=== PATIENT | male | born 1970 | race African-American/Black ===

== ENCOUNTER 2017-04-05 17:00 | Emergency (ER) | payer MEDICAID ==
[~2017-04-05 17:00] MED LIST: DIGO0.1262 PO; IBUP800T24 PO; METO25TA5 PO
== END 2017-04-05 18:09 | disposition left against medical advice (07) ==
LOC: ER 17:03
DX: R07.89 Other chest pain (principal); Z53.21 Procedure and treatment not carried out due to patient leaving prior to being seen by health care provider

== ENCOUNTER 2021-08-06 04:17 | Emergency (ER) | payer MEDICAID ==
[~2021-08-06] VITALS: Ht 152.4 cm; Wt 124.3 kg
[~2021-08-06 04:17] MED LIST changes: -IBUP800T24 PO; +IBUP800T27 PO
[2021-08-06 07:02] LABS: Urine Bacteria NONE SEEN /hpf (None Seen); Urine Blood Negative /uL (Negative); Urine Mucus FEW (None Seen); Urine Specific Gravity 1.025 (1.001-1.035); Urine WBC 6 /hpf (0 - 3)
[2021-08-06 07:07] LABS: Basophils # (auto) 0 10 ^3/uL (0-0.2); Basophils % (auto) 0.9 % (0.0-2.0); Eosinophils # (auto) 0 10 ^3/uL (0-0.8); Hematocrit 44.3 % (41.0-53.0); Hemoglobin 14.5 g/dL (13.5-17.5); Lymphocytes # (auto) 1.1 10 ^3/uL (0.4-5.4); Lymphocytes % (auto) 23.8 % (10.0-50.0); Mean Corpuscular Hemoglobin 27.6 pg (28.0-32.0); Mean Corpuscular Hgb Conc. 32.7 g/dL (32.0-36.0); Mean Corpuscular Volume 84.5 fL (80.0-100.0); Monocytes # (auto) 0.4 10 ^3/uL (0-1.3); Monocytes % (auto) 8.3 % (0.0-12.0); Neutrophils # (auto) 3.1 10 ^3/uL (1.6-8.6); Nucleated Red Blood Cells % 0.1 %; Red Blood Cells 5.25 10^6/uL (4.5-5.90); Red Cell Distribution Width 15.3 % (11.8-14.3); White Blood Cell 4.7 10^3/uL (4.4-10.8)
[2021-08-06 07:15] LABS: Albumin 3.6 g/dL (3.4-5.0); BUN/Creatinine Ratio 13.5; Calcium 8.8 mg/dL (8.5-10.1); Potassium 3.9 mmol/L (3.5-5.1)
[2021-08-06 07:18] LABS: Bilirubin, Total 0.2 mg/dL (0.2-1.0); Total Protein 8.1 g/dL (6.4-8.2)
[2021-08-06] MEDS ORDERED: ONDANSETRON HCL 4 MG/2 ML VIAL IV ONE (08:30)
[2021-08-06] MEDS ORDERED: MORPHINE SULFATE 4 MG/ML SYR/VIAL IV ONE (08:30)
[2021-08-06] MEDS ORDERED: KETOROLAC TROMETH 30 MG/ML 1ML VIAL IV ONE (09:00)
[2021-08-06 11:18] VITALS: BP 105/57
== END 2021-08-06 11:26 | disposition home or self-care (01) ==
LOC: ER 04:17
DX: N39.0 Urinary tract infection, site not specified (principal); I10 Essential (primary) hypertension; I48.91 Unspecified atrial fibrillation; F17.210 Nicotine dependence, cigarettes, uncomplicated; Z86.73 Personal history of transient ischemic attack (TIA), and cerebral infarction without residual deficits; Z79.1 Long term (current) use of non-steroidal anti-inflammatories (NSAID); Z79.899 Other long term (current) drug therapy
CPT/HCPCS: 36415; 74176; 80053; 81001; 83690; 85025; 96374; 99285; J1885; J2270; J2405

== ENCOUNTER 2024-10-24 05:42 | Inpatient (IN) | payer MEDICAID, SELFPAY ==
[~2024-10-24] VITALS: Ht 175.3 cm; Wt 131.6 kg
[~2024-10-24 05:42] MED LIST changes: +IBUP-1456 PO; -IBUP800T27 PO
--- NOTE | 2024-10-24 06:03 | ECG ---
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
--- NOTE | 2024-10-24 06:56 | ECG ---
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
[2024-10-24] MEDS: AMIODARONE BOLUS KIT 100 ML IV ONE (07:13)
[2024-10-24 07:27] LABS: Basophils # (auto) 0.1 10 ^3/uL (0-0.2); Basophils % (auto) 1.1 % (0.0-2.0); Eosinophils # (auto) 0.2 10 ^3/uL (0-0.8); Eosinophils % (auto) 3.6 % (0.0-7.0); Hematocrit 43.8 % (41.0-53.0); Hemoglobin 14.7 g/dL (13.5-17.5); Lymphocytes # (auto) 3.3 10 ^3/uL (0.4-5.4); Lymphocytes % (auto) 55.3 % (10.0-50.0); Mean Corpuscular Hemoglobin 28.3 pg (28.0-32.0); Mean Corpuscular Hgb Conc. 33.5 g/dL (32.0-36.0); Mean Corpuscular Volume 84.5 fL (80.0-100.0); Monocytes # (auto) 0.4 10 ^3/uL (0-1.3); Monocytes % (auto) 7.3 % (0.0-12.0); Neutrophils # (auto) 1.9 10 ^3/uL (1.6-8.6); Neutrophils % (auto) 32.7 % (37.0-80.0); Nucleated Red Blood Cells % 0.3 %; Platelet Count (auto) 256 10^3/uL (140-450); Red Blood Cells 5.19 10^6/uL (4.5-5.90); Red Cell Distribution Width 14.8 % (11.8-14.3)
--- NOTE | 2024-10-24 07:27 | ED.PDOC ---
HPI Comments 53 y/o M, with PMHX of MattYvetteCarrie presents to the ED for CC of palpitations. Patient states, that he has been experiencing palpitations with associated symptoms of chest pain and shortness of breath x . Patient endorses on, having a previous prescription for atrial fibrillation medication which he has not gone to have refilled; last time taking prescription was x4 years ago. Patient smokes tobacco and marijuana, drinks occasional ETOH. Patient denies headache, fever, dizziness , or lightheadedness. No new symptoms or modifying factors at this time. Chief Complaint: Palpitations Time Seen by MD: 07:30 Primary Care Provider: NONE Reviewed Notes: Nurses Notes, Medications, Allergies Allergies: Coded Allergies: NO KNOWN ALLERGIES (Unverified , 06/25/15) Home Meds Reported Medications Digoxin (Digoxin) 0.125 Mg Tab, 1 TAB PO DAILY, #30 TAB 5 Refills 08/24/15 Metoprolol Tartrate (Metoprolol Tartrate) 25 Mg Tab, 25 MG PO DAILY 06/25/15 Ibuprofen (Ibuprofen) 800 Mg Tab, 800 MG PO 2XW, #90 06/25/15 Information Source: Patient Mode of Arrival: Ambulatory Severity: Moderate Duration: Since onset Prehospital treatment: None Location: Substernal Radiation: No Radiation Cardiac Risk Factors: Smoker History of: None Modifying Factors: Nothing Associated Signs and Symptoms: SOB Past Medical History PAST MEDICAL HISTORY: AFIB, TIA Family History Family History: No family hx of DM, No family hx of HTN Social History Smoker: Cigarettes, Less Than 1 Pack/Day Alcohol: Rarely Drugs: Marijuana Lives In: Home Constitutional: denies: chills, diaphoresis, fatigue, fever, malaise, sweats, weakness, others EENTM: denies: blurred vision, double vision, ear bleeding, ear discharge, ear drainage, ear pain, ear ringing, eye pain, eye redness, hearing loss, mouth pain, mouth swelling, nasal discharge, nose bleeding, nose congestion, nose pain, photophobia, tearing, throat pain, throat swelling, voice changes, others Respiratory: reports: shortness of breath; denies: cough, hemoptysis, orthopnea, SOB at rest, SOB with excertion, stridor, wheezing, others Cardiovascular: reports: chest pain, irregular heart beat, palpitations; denies: dizzy spells, diaphoresis, Dyspnea on exertion, edema, left arm pain, lightheadedness, PND, syncope, others Gastrointestinal: denies: abdomen distended, abdominal pain, blood streaked bowels, constipated, diarrhea, dysphagia, difficulty swallowing, hematemesis, melena, nausea, poor appetite, poor fluid intake, rectal bleeding, rectal pain, vomiting, others Genitourinary: denies: burning, dysuria, flank pain, frequency, hematuria, incontinence, penile discharge, penile sore, pain, testicle pain, testicle swelling, urgency, others Neurological: denies: dizziness, fainting, headache, left sided numbness, left sided weakness, numbness, paresthesia, pre-existing deficit, right sided numbness, right sided weakness, seizure, speech problems, tingling, tremors, weakness, others Musculoskeletal: denies: back pain, gout, joint pain, joint swelling, muscle pain, muscle stiffness, neck pain, others Integumetry: denies: bruises, change in color, change in hair/nails, dryness, laceration, lesions, lumps, rash, wounds, others Allergic/Immunocompromised: denies: Difficulty Healing, Frequent Infections, Hives, Itching, others Hematologic/Lymphatic: denies: anemia, blood clots, easy bleeding, easy bruising, swollen glands, others Endocrine: denies: excessive hunger, excessive sweating, excessive thirst, excessive urination, flushing, intolerance to cold, intolerance to heat, unexplained weight gain, unexplained weight loss, others Psychiatric: denies: anxiety, bipolar disorder, depression, hopeless, panic disorder, schizophrenia, sleepless, suicidal, others All Other Systems: Reviewed and Negative Physical Exam General Appearance: Moderate Distress HEENT: Normal ENT Inspection, Pharynx Normal, TMs Normal Neck: Full Range of Motion, Non-Tender, Normal, Normal Inspection Respiratory: Chest Non-Tender, Lungs Clear, No Accessory Muscle Use, No Respiratory Distress, Normal Breath Sounds Cardiovascular: Irregular, Tachycardia Breast Exam: Deferred Gastrointestinal: No Organomegaly, Non Tender, No Pulsatile Mass, Normal Bowel Sounds, Soft Genitalia: Deferred Pelvic: Deferred Rectal: Deferred Extremities: No calf tenderness, Normal capillary refill, Normal inspection, Normal range of motion, Non-tender, No pedal edema Musculoskeletal : Apperance: Normal Neurologic: Alert, 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 Was a procedure done?: No CP Differential Dx Differential Diagnosis: A-fib X-Ray, Labs, Meds, VS Vital Signs Date Time Temp Pulse Resp B/P (MAP) Pulse Ox O2 Delivery O2 Flow Rate FiO2 10/24/24 08:00 136 10/24/24 07:30 109 17 94 Room Air* 0 21 10/24/24 07:30 98.1 109 17 112/74 (87) 94 98.1 10/24/24 07:27 155 10/24/24 07:00 171 20 103/68 (80) 92 10/24/24 06:49 155 10/24/24 06:43 139 17 99/63 (75) 96 10/24/24 06:41 149 10/24/24 06:15 166 19 107/61 (76) 95 10/24/24 05:51 136 10/24/24 05:51 136 10/24/24 05:45 98.6 134 18 131/90 (104) 97 Lab Test 10/24/24 08:21 10/24/24 07:07 10/24/24 06:03 Range/Units Urine Color Light-yellow Yellow Urine Clarity Clear Clear Urine pH 5.0 5.0-9.0 Urine Specific [place] 1.013 1.001-1.035 Urine Protein Negative Negative Urine Ketones Negative Negative Urine Blood Negative Negative /uL Urine Nitrite Negative Negative Urine Bilirubin Negative Negative Urine Urobilinogen Normal Negative mg/dL Urine Leukocyte Esterase Negative Negative /uL Urine RBC None seen 0 - 3 /hpf Urine Microscopic WBC < 1 0-3 /HPF Urine Squamous Epithelial Cells Few <5 /hpf Urine Bacteria None seen None Seen /hpf Urine Glucose Normal Normal mg/dL Troponin I High Sensitivity 74 *H 74 *H </=54 ng/L White Blood Count 6.0 4.4-10.8 10^3/uL Red Blood Count 5.19 4.5-5.90 10^6/uL Hemoglobin 14.7 13.5-17.5 g/dL Hematocrit 43.8 41.0-53.0 % Mean Corpuscular Volume 84.5 80.0-100.0 fL Mean Corpuscular Hemoglobin 28.3 28.0-32.0 pg Mean Corpuscular Hemoglobin Concent 33.5 32.0-36.0 g/dL Red Cell Distribution Width 14.8 H 11.8-14.3 % Platelet Count 256 140-450 10^3/uL Mean Platelet Volume 8.4 6.9-10.8 fL Neutrophils (%) (Auto) 32.7 L 37.0-80.0 % Lymphocytes (%) (Auto) 55.3 H 10.0-50.0 % Monocytes (%) (Auto) 7.3 0.0-12.0 % Eosinophils (%) (Auto) 3.6 0.0-7.0 % Basophils (%) (Auto) 1.1 0.0-2.0 % Neutrophils # (Auto) 1.9 1.6-8.6 10 ^3/uL Lymphocytes # (Auto) 3.3 0.4-5.4 10 ^3/uL Monocytes # (Auto) 0.4 0-1.3 10 ^3/uL Eosinophils # (Auto) 0.2 0-0.8 10 ^3/uL Basophils # (Auto) 0.1 0-0.2 10 ^3/uL Nucleated Red Blood Cells 0.3 % Sodium Level 141 136-145 mmol/L Potassium Level 4.4 3.5-5.1 mmol/L Chloride Level 111 H 98-107 mmol/L Carbon Dioxide Level 20 20-31 mmol/L Anion Gap 10 5-15 Blood Urea Nitrogen 12 9-23 mg/dL Creatinine 1.12 0.700-1.30 mg/dL Glomerular Filtration Rate Calc 80 >90 mL/min BUN/Creatinine Ratio 10.7 10.0-20.0 Serum Glucose 130 H 74-106 mg/dL Calcium Level 9.9 8.7-10.4 mg/dL Total Bilirubin 0.2 0.2-1.0 mg/dL Aspartate Amino Transferase (AST) 24 13-40 U/L Alanine Aminotransferase (ALT) 34 7-40 U/L Alkaline Phosphatase 106 46-116 U/L B-Type Natriuretic Peptide 9.28 0-100 pg/mL Total Protein 7.5 5.7-8.2 g/dL Albumin 4.5 3.2-4.8 g/dL Current Medications Medications (Trade) Dose Ordered Sig/Viry Route Start Time Stop Time Status Last Admin Amiodarone HCl 100 ml @ 618 mls/hr ONCE ONCE IV 10/24/24 07:00 10/24/24 07:09 DC 10/24/24 07:13 Patient alert. Complaining of palpitations. Vitals stable. Answering questions. EKG reviewed shows atrial fibrillation. Started amiodarone. Has not taken his medication in many years. History of atrial fibrillation. Patient is comfortable. Cardiac marker elevated. Demand ischemia. Was given Lovenox. Explained to the patient. Continue cardiac monitoring. Time of 1ST Reevaluation: 08:00 Reevaluation 1ST: Unchanged Patient Education/Counseling: Diagnosis, Treatment Family Education/Counseling: No Family Present Departure 1 Departure Time of Disposition: 09:10 Impression: Primary Impression: Atrial fibrillation Qualified Codes: I48.0 - Paroxysmal atrial fibrillation Additional Impressions: Demand ischemia Diastolic heart failure Qualified Codes: I50.33 - Acute on chronic diastolic (congestive) heart failure Disposition: ADMITTED INPATIENT Admit to: Med Surg Condition: Guarded Critical Care Note Critical Care Time?: Yes (90 min-critical care time only) Stability Stability form required: No Heart Score Heart Score: Heart Score Response (Comments) Value History Moderate Suspicious [address]-Deviation 2 Age <45 0 Risk Factors >3 or Hx ASHD 2 Troponin 1-2 x's Normal limit 1 Total 6 I personally scribed for RUTHANN PETERSON MD ([email or web address]) on 10/24/24 at 07:27. Electronically submitted by Ester Bagley [email or web address]). RUTHANN PETERSON MD Oct 24, 2024 07:27
[2024-10-24 07:30] VITALS: PULSE 109; RESP 17; O2SAT 94
[2024-10-24 07:37] LABS: Alanine Aminotransferase 34 U/L (7-40); Albumin 4.5 g/dL (3.2-4.8); Alkaline Phosphatase 106 U/L (46-116); Anion Gap 10 (5-15); Aspartate Aminotransferase 24 U/L (13-40); BUN/Creatinine Ratio 10.7 (10.0-20.0); Blood Urea Nitrogen 12 mg/dL (9-23); Calcium 9.9 mg/dL (8.7-10.4); Potassium 4.4 mmol/L (3.5-5.1); Sodium 141 mmol/L (136-145); Total Protein 7.5 g/dL (5.7-8.2)
[2024-10-24 07:41] LABS: Bilirubin, Total 0.2 mg/dL (0.2-1.0); Carbon Dioxide 20 mmol/L (20-31); Chloride 111 mmol/L (98-107); Glucose 130 mg/dL (74-106)
[2024-10-24] MEDS: AMIODARONE 360mg/200mL PREMIX 200 ML IV ONE ×2 (07:43)
[2024-10-24 08:32] LABS: Urine Bacteria None Seen /hpf (None Seen)
[2024-10-24 08:51] LABS: Urine Blood Negative /uL (Negative); Urine Clarity Clear (Clear); Urine Protein, UAD Negative (Negative); Urine Specific Gravity 1.013 (1.001-1.035); Urine Squamous Epithelial Cell FEW /hpf (<5); Urine Urobilinogen Normal (Negative); Urine WBC < 1 /HPF (0-3)
[2024-10-24 08:58] LABS: Urine Color Light-Yellow (Yellow)
--- NOTE | 2024-10-24 09:27 | DVH ---
EXAM: XY CHEST PORTABLE HISTORY: sob COMPARISON: None TECHNIQUE: Portable upright AP view of the chest was performed. FINDINGS: There is mild right medial basilar infiltrate. No pneumothorax or pulmonary edema. The heart is not enlarged. IMPRESSION: Mild right medial basilar infiltrate may be due to pneumonia, atelectasis, or scarring. Comparison w ith old chest x-ray would be necessary to make this distinction. The lungs are otherwise clear.
[2024-10-24] MEDS: ENOXAPARIN SOD 150 MG/1 ML SYRINGE SC ONE (10:00)
[2024-10-24] MEDS: AMIODARONE 360mg/200mL PREMIX 200 ML IV SCH (13:01)
[2024-10-24] MEDS ORDERED: NITROGLYCERIN 0.4 MG SL TAB SL PRN ×2 (14:00)
[2024-10-24] MEDS ORDERED: MORPHINE SULFATE 4 MG/ML SYR/VIAL IV PRN (14:00)
[2024-10-24] MEDS ORDERED: ONDANSETRON HCL 4 MG/2 ML VIAL IV PRN (14:00)
[2024-10-24] MEDS ORDERED: MORPHINE SULFATE INJ 2 MG/ml SYRG IV PRN (14:00)
[2024-10-24] MEDS ORDERED: ACETAMINOPHEN 325 MG TAB PO PRN (14:00)
[2024-10-24 14:12] LABS: Opiate Scree,Urine Neg (NEGATIVE)
[2024-10-24 14:13] LABS: Amphetamine Screen, Urine Neg (NEGATIVE); Barbiturate Scree,Urine Neg (NEGATIVE); Benzodiazephine Screen, Urine Neg (NEGATIVE); Cannabinoid Screen, Urine Pos (NEGATIVE); Cocaine Screen, Urine Neg (NEGATIVE); Phencyclidine Screen, Urine Neg (NEGATIVE)
--- NOTE | 2024-10-24 14:13 | DVHHP2 ---
History of Present Illness Reason for Visit: Palpitations History of Present Illness Moiz Whitaker is a 53-year-old male with past medical history of AFib and TIA who presents to the ED with palpitations and SOB x2 days. Patient reports he had chest pain that started today 5/10 constant and pressure-like. Patient reports that he was at home and just relaxing with nothing triggering the symptoms. Patient also reports there are no alleviating factors. Patient states that he has medications to take for his heart but did not take them because he ran out and forgot. Patient states that he smokes cigars daily, drinks 3 beers per weekend and uses marijuana. Patient also reports that he had his gallbladder c leaned out and a ganglion cyst removal on his right hand. Patient denies any fever, chills, recent sick contacts, recent injury, abdominal pain, nausea, vomiting, diarrhea, lightheadedness, and weakness. 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 Past Surgical History: Other (Ganglion cyst removal on right hand) Family History: None Smoke: <1 pack per day ALCOHOL: occassional Drugs: Marijuana Lives: with Family Domestic Violence: Neg Review of Systems Constitutional: No: Fever, Chills, Sweats, Weakness, Malaise, Other Eyes: No: Pain, Vision change, Conjunctivae inflammation, Eyelid inflammation, Other, Redness ENT: No: Ear pain, Ear discharge, Nose pain, Nose discharge, Nose congestion, Mouth pain, Mouth swelling, Throat pain, Throat swelling, Other Respiratory: Shortness of breath; No: Cough, Dry, SOB with excertion, Wheezing, Hemoptysis, Pleuritic Pain, Sputum, Wheezing, Other Cardiovascular: Chest Pain, Palpitations; No: Orthopnea, Paroxysmal Noc. Dyspnea, Edema, Lt Headedness, Other Gastrointestinal: No: Nausea, Vomiting, Abdominal Pain, Diarrhea, Constipation, Melena, Hematochezia, Other Genitourinary: No Dysuria, No Frequency, No Incontinence, No Hematuria, No Retention, No Other Musculoskeletal: No: other, neck pain, shoulder pain, arm pain, back pain, hand pain, leg pain, foot pain Skin: No: Rash, Lesions, Jaundice, Bruising, Other Neurological: No: Weakness, Numbness, Incoordination, Change in speech, Confusion, Seizures, Other Allergies: Coded Allergies: NO KNOWN ALLERGIES (Unverified , 06/25/15) Medications Current Medications Medications Dose Ordered Sig/Viry Route Start Time Stop Time Status Last Admin Dose Admin Ceftriaxone Sodium 50 ml @ 100 mls/hr DAILY@09 IV 10/25/24 09:00 UNV Digoxin 0.125 mg DAILY PO 10/25/24 10:00 UNV Ibuprofen 800 mg 2XW PO 10/27/24 12:00 UNV Metoprolol Tartrate 25 mg DAILY PO 10/25/24 10:00 UNV Exam Vital Signs Vital Signs Date Time Temp Pulse Resp B/P (MAP) Pulse Ox O2 Delivery O2 Flow Rate FiO2 10/24/24 13:00 115 23 109/68 (82) 97 10/24/24 07:30 Room Air* 0 21 10/24/24 07:30 98.1 98.1 General Appearance: Alert, Oriented X3, Cooperative, No acute distress HEENT: Atraumatic, PERRLA, EOMI, Mucous membr. moist/pink Respiratory: Clear to auscultation, Normal air movement Cardiovascular: Normal S1, Normal S2, No murmurs Abdominal: Normal bowel sounds, Soft, No tenderness, No hepatospenomegaly, No masses Extremities: No clubbing, No cyanosis, No edema, Normal pulses, No tenderness/swelling Skin: No rashes, No breakdown, No significant lesion Neuro: Normal gait, Normal speech, Strength at 5/5 X4 ext, Normal tone, Sensation intact Psych/Mental Status: Mental status NL, Mood NL Labs/Xrays Labs Test 10/24/24 09:14 10/24/24 08:21 10/24/24 06:03 Range/Units Troponin I High Sensitivity 88 *H </=54 ng/L Urine Color Light-yellow Yellow Urine Clarity Clear Clear Urine pH 5.0 5.0-9.0 Urine Specific [place] 1.013 1.001-1.035 Urine Protein Negative Negative Urine Ketones Negative Negative Urine Blood Negative Negative /uL Urine Nitrite Negative Negative Urine Bilirubin Negative Negative Urine Urobilinogen Normal Negative mg/dL Urine Leukocyte Esterase Negative Negative /uL Urine RBC None seen 0 - 3 /hpf Urine Microscopic WBC < 1 0-3 /HPF Urine Squamous Epithelial Cells Few <5 /hpf Urine Bacteria None seen None Seen /hpf Urine Glucose Normal Normal mg/dL White Blood Count 6.0 4.4-10.8 10^3/uL Red Blood Count 5.19 4.5-5.90 10^6/uL Hemoglobin 14.7 13.5-17.5 g/dL Hematocrit 43.8 41.0-53.0 % Mean Corpuscular Volume 84.5 80.0-100.0 fL Mean Corpuscular Hemoglobin 28.3 28.0-32.0 pg Mean Corpuscular Hemoglobin Concent 33.5 32.0-36.0 g/dL Red Cell Distribution Width 14.8 H 11.8-14.3 % Platelet Count 256 140-450 10^3/uL Mean Platelet Volume 8.4 6.9-10.8 fL Neutrophils (%) (Auto) 32.7 L 37.0-80.0 % Lymphocytes (%) (Auto) 55.3 H 10.0-50.0 % Monocytes (%) (Auto) 7.3 0.0-12.0 % Eosinophils (%) (Auto) 3.6 0.0-7.0 % Basophils (%) (Auto) 1.1 0.0-2.0 % Neutrophils # (Auto) 1.9 1.6-8.6 10 ^3/uL Lymphocytes # (Auto) 3.3 0.4-5.4 10 ^3/uL Monocytes # (Auto) 0.4 0-1.3 10 ^3/uL Eosinophils # (Auto) 0.2 0-0.8 10 ^3/uL Basophils # (Auto) 0.1 0-0.2 10 ^3/uL Nucleated Red Blood Cells 0.3 % Sodium Level 141 136-145 mmol/L Potassium Level 4.4 3.5-5.1 mmol/L Chloride Level 111 H 98-107 mmol/L Carbon Dioxide Level 20 20-31 mmol/L Anion Gap 10 5-15 Blood Urea Nitrogen 12 9-23 mg/dL Creatinine 1.12 0.700-1.30 mg/dL Glomerular Filtration Rate Calc 80 >90 mL/min BUN/Creatinine Ratio 10.7 10.0-20.0 Serum Glucose 130 H 74-106 mg/dL Calcium Level 9.9 8.7-10.4 mg/dL Total Bilirubin 0.2 0.2-1.0 mg/dL Aspartate Amino Transferase (AST) 24 13-40 U/L Alanine Aminotransferase (ALT) 34 7-40 U/L Alkaline Phosphatase 106 46-116 U/L B-Type Natriuretic Peptide 9.28 0-100 pg/mL Total Protein 7.5 5.7-8.2 g/dL Albumin 4.5 3.2-4.8 g/dL EXAM: XY CHEST PORTABLE HISTORY: sob COMPARISON: None TECHNIQUE: Portable upright AP view of the chest was performed. FINDINGS: There is mild right medial basilar infiltrate. No pneumothorax or pulmonary edema. The heart is not enlarged. IMPRESSION: Mild right medial basilar infiltrate may be due to pneumonia, atelectasis, or scarring. Comparison with old chest x-ray would be necessary to make this distinction. The lungs are otherwise clear. Assessment/Plan Assessment/Plan Assessment/Plan: Palpitations Chest pain rule out cardiac ischemia AFib RVR Probable PNA Labs A.m. labs Chest x-ray UA Amnio drip Lovenox given in ED BNP UA EKG Troponin Last echo on 08/25/2015 EF 65-70% Echo ordered UDS TSH Lipid panel A1c Magnesium level ACS protocol Cardiology consult IV antibiotics-ceftriaxone History of TIA Monitor Follow up outpatient ETOH abuse Counseled patient on cessation of EtOH Polysubstance abuse Counseled patient on cessation of polysubstance use Morbid Obesity Discussed lifestyle modifications, exercise, and diet FEN/PPX diet Hep-Lock DVT prophylaxis not indicated patient ambulating PUD prophylaxis not indicated patient has no history of GERD or GI bleed Admit patient to tele Home medications reconciled Discussed plan of care with nurse and patient Plan discussed with: Patient My Orders 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 Procedure Category Date Status Time * Cardiology Consult CONS 10/24/24 Transmitted 13:14 Ceftriaxone 1gm/50ml PHA 10/25/24 Logged D5w (Rocephin) 09:00 Ceftriaxone 1gm/50ml PHA 10/24/24 Logged D5w (Rocephin) 13:30 Echo 2d Mode Cardiac US 10/24/24 Logged DOP 13:16 Drug Screen LAB 10/24/24 Logged 13:16 Thyroid Stimulating LAB 10/24/24 Logged Hormone 13:16 Lipid Panel LAB 10/24/24 Logged 13:16 Hemoglobin A1c LAB 10/24/24 Logged 13:16 Digoxin Tablet PHA 10/25/24 Logged (Lanoxin Tablet) 10:00 Ibuprofen Tablet PHA 10/27/24 Logged (Motrin Tablet) 12:00 Metoprolol Tartrate PHA 10/25/24 Logged Tablet (Lopressor Ta 10:00 Date of Service: Oct 24, 2024 Billing Provider: YARELI FLOOD Common Visit Codes: [id number] INP/OBS CARE (HIGH) YARELI FLOOD Oct 24, 2024 14:13
[2024-10-24 14:18] LABS: Cholesterol 166 mg/dL (< 200)
[2024-10-24 14:25] LABS: HDL Cholesterol 35 mg/dL (40-59); LDL Cholesterol 118 mg/dL (< 100); Triglycerides 216 mg/dL (< 150)
[2024-10-24] MEDS: cefTRIAXone 1GM/50ML D5W 50 ML IV ONE (14:38)
--- NOTE | 2024-10-24 16:25 | DVHINCON2 ---
Date Seen: Oct 24, 2024 Referring Physician EFRAIN Pope Reason for Consultation AFib RVR History of Present Illness This is a 53-year-old male patient who presents to the emergency room with chief complaint of palpitations. The patient reports that initially the palpitations began yesterday at approximately 3:30 p.m. while smoking a cigar. He states that the palpitations lasted approximately 15 minutes and then subsided on their own. He reports that the palpitations began again at approximately 2:30 a.m. today while he was sleeping. This prompted him to come to the emergency room for further evaluation. Initial twelve lead electrocardiogram reveals atrial fibrillation with rapid ventricular response (ST segment changes seen in lead aVL, likely from lead misplacement). A repeat twelve lead electrocardiogram reveals atrial fibrillation with rapid ventricular response. Initial troponin level of 74ng/L with flat trend thereafter. Significant past medical history includes atrial fibrillation (not on NOAC), tobacco use, and obesity. The patient reports previously being diagnosed with atrial fibrillation and states he stopped taking all of his medications approximately three years ago and does not follow up with a pipe setter in the outpatient setting. Past Medical History Past medical history reviewed. No other significant than mentioned above. Past Surgical History Denies all previous surgeries Family History: Family history: Diabetes mellitus G8 MOTHER Family History Family history reviewed. Social History Smokes cigars daily Admits to marijuana use Occasional alcohol use Allergies: Coded Allergies: NO KNOWN ALLERGIES (Unverified , 06/25/15) Home Meds Reported Medications Digoxin (Digoxin) 0.125 Mg Tab, 1 TAB PO DAILY, #30 TAB 5 Refills 08/24/15 Metoprolol Tartrate (Metoprolol Tartrate) 25 Mg Tab, 25 MG PO DAILY 06/25/15 Home Meds Denies taking any prescribed medications Current Medications Current Medications Medications (Trade) Dose Ordered Sig/Viry Route PRN Reason Start Time Stop Time Status Last Admin Ceftriaxone Sodium 50 ml @ 100 mls/hr DAILY@09 IV 10/25/24 09:00 Digoxin (Lanoxin Tablet) 0.125 mg DAILY PO 10/25/24 10:00 UNV Ibuprofen (Motrin Tablet) 800 mg 2XW PO 10/27/24 12:00 Metoprolol Tartrate (Lopressor Tablet) 25 mg DAILY PO 10/25/24 10:00 UNV Aspirin 81 mg DAILY PO 10/25/24 10:00 Atorvastatin Calcium (Lipitor) 40 mg HS PO 10/24/24 22:00 Morphine Sulfate 2 mg Q30MP PRN IV FOR CHEST PAIN 10/24/24 14:00 10/24/24 14:07 DC Acetaminophen (Tylenol Tablet) 650 mg Q6HP PRN PO MILD PAIN (1-3 PAIN SCALE) 10/24/24 14:00 Nitroglycerin (Ntrostat Sublingual) 0.4 mg Q5MINP PRN SL FOR CHEST PAIN 10/24/24 14:00 10/24/24 14:07 DC Ondansetron HCl (Zofran) 4 mg Q4HP PRN IV NAUSEA / VOMITING 10/24/24 14:00 Nitroglycerin (Ntrostat Sublingual) 0.4 mg Q5MINP PRN SL FOR CHEST PAIN 10/24/24 14:00 Morphine Sulfate 2 mg Q30M PRN IV FOR CHEST PAIN 10/24/24 14:00 Review of Systems Constitutional: No symptom reported Ears, Nose, & Throat: No symptom reported Eyes: No symptom reported Neurological: No symptoms reported Pulmonary/Respiratory: No symptoms reported Cardiovascular: Palpitations Gastrointestinal: No symptom reported Genitourinary: No symptom reported Musculoskeletal: No symptom reported Skin: No symptom reported Psychiatric: No symptom reported Endocrine: No symptom reported Hematologic/Lymphatic: No symptom reported Vital Signs Vital Signs Date Time Temp Pulse Resp B/P (MAP) Pulse Ox O2 Delivery O2 Flow Rate FiO2 10/24/24 16:00 62 10/24/24 15:00 17 138/84 (102) 98 10/24/24 07:30 Room Air* 0 21 10/24/24 07:30 98.1 98.1 Physical Exam General Appearance: Cooperative. Morbidly obese Pulmonary/Respiratory: Clear, bilateral breaths sounds. Cardiovascular/Chest: Irregular rate and rhythm. Peripheral Pulses: 2+ Radial (R). 2+ Radial (L). 2+ Pedal (R). 2+ Pedal (L) Abdominal Exam: Normal bowel sounds. Ankle Exam: Negative ankle edema Lower extremities: Negative lower extremity edema Neuro/Mental Status: A/OX4, coherent. Thoughts/Psych: Normal thought pattern. Appropriate mood and affect. Good judgment and insight. Appearance: No acute distress. Skin Exam: Normal inspection. Normal color. Warm and dry. Labs/Diagnostic Data Labs Test 10/24/24 13:39 10/24/24 09:14 10/24/24 08:21 10/24/24 06:03 Range/Units Urine Opiates Screen Neg NEGATIVE Urine Fentanyl Screen Neg NEGATIVE Urine Barbiturates Screen Neg NEGATIVE Urine Phencyclidine Screen Neg NEGATIVE Urine Amphetamines Screen Neg NEGATIVE Urine Benzodiazepines Screen Neg NEGATIVE Urine Cocaine Screen Neg NEGATIVE Urine Cannabinoids Screen Pos NEGATIVE Troponin I High Sensitivity 88 *H </=54 ng/L Urine Color Light-yellow Yellow Urine Clarity Clear Clear Urine pH 5.0 5.0-9.0 Urine Specific [place] 1.013 1.001-1.035 Urine Protein Negative Negative Urine Ketones Negative Negative Urine Blood Negative Negative /uL Urine Nitrite Negative Negative Urine Bilirubin Negative Negative Urine Urobilinogen Normal Negative mg/dL Urine Leukocyte Esterase Negative Negative /uL Urine RBC None seen 0 - 3 /hpf Urine Microscopic WBC < 1 0-3 /HPF Urine Squamous Epithelial Cells Few <5 /hpf Urine Bacteria None seen None Seen /hpf Urine Glucose Normal Normal mg/dL White Blood Count 6.0 4.4-10.8 10^3/uL Red Blood Count 5.19 4.5-5.90 10^6/uL Hemoglobin 14.7 13.5-17.5 g/dL Hematocrit 43.8 41.0-53.0 % Mean Corpuscular Volume 84.5 80.0-100.0 fL Mean Corpuscular Hemoglobin 28.3 28.0-32.0 pg Mean Corpuscular Hemoglobin Concent 33.5 32.0-36.0 g/dL Red Cell Distribution Width 14.8 H 11.8-14.3 % Platelet Count 256 140-450 10^3/uL Mean Platelet Volume 8.4 6.9-10.8 fL Neutrophils (%) (Auto) 32.7 L 37.0-80.0 % Lymphocytes (%) (Auto) 55.3 H 10.0-50.0 % Monocytes (%) (Auto) 7.3 0.0-12.0 % Eosinophils (%) (Auto) 3.6 0.0-7.0 % Basophils (%) (Auto) 1.1 0.0-2.0 % Neutrophils # (Auto) 1.9 1.6-8.6 10 ^3/uL Lymphocytes # (Auto) 3.3 0.4-5.4 10 ^3/uL Monocytes # (Auto) 0.4 0-1.3 10 ^3/uL Eosinophils # (Auto) 0.2 0-0.8 10 ^3/uL Basophils # (Auto) 0.1 0-0.2 10 ^3/uL Nucleated Red Blood Cells 0.3 % Sodium Level 141 136-145 mmol/L Potassium Level 4.4 3.5-5.1 mmol/L Chloride Level 111 H 98-107 mmol/L Carbon Dioxide Level 20 20-31 mmol/L Anion Gap 10 5-15 Blood Urea Nitrogen 12 9-23 mg/dL Creatinine 1.12 0.700-1.30 mg/dL Glomerular Filtration Rate Calc 80 >90 mL/min BUN/Creatinine Ratio 10.7 10.0-20.0 Serum Glucose 130 H 74-106 mg/dL Hemoglobin A1c 6.1 H <5.7 % A1C Calcium Level 9.9 8.7-10.4 mg/dL Magnesium Level 2.2 1.6-2.6 mg/dL Total Bilirubin 0.2 0.2-1.0 mg/dL Aspartate Amino Transferase (AST) 24 13-40 U/L Alanine Aminotransferase (ALT) 34 7-40 U/L Alkaline Phosphatase 106 46-116 U/L B-Type Natriuretic Peptide 9.28 0-100 pg/mL Total Protein 7.5 5.7-8.2 g/dL Albumin 4.5 3.2-4.8 g/dL Triglycerides Level 216 H < 150 mg/dL Cholesterol Level 166 < 200 mg/dL LDL Cholesterol 118 H < 100 mg/dL HDL Cholesterol 35 L 40-59 mg/dL Thyroid Stimulating Hormone (TSH) 1.74 0.55-4.78 uIU/mL Assessment Atrial fibrillation with rapid ventricular response NSTEMI, type II secondary to above Dyslipidemia, newly diagnosed Prediabetes, newly diagnosed ?Pneumonia Tobacco use Marijuana use Morbid obesity Plan/Recommendation We will continue with the following plan/recommendations (Dr. Doyle): * Transthoracic echocardiogram reveals EF 60% * [id number] VASc score: 0 points * Initiate therapeutic Lovenox, transition to NOAC when appropriate * Antiarrhythmic agent, amiodarone * Beta-tommy for rate control; up-titrate as tolerated * Monitor and replete electrolytes as needed, keep potassium greater than 4 and magnesium greater than 2 * Initiate lipid-lowering agent * Continue close cardiac surveillance Case reviewed and discussed with . Thank you for allowing us to care for this patient. Please call with any questions or concerns. Critical care time spent: 44 minutes This medical document was created using an electronic medical record system with voice recognition software and computerized dictation system. Although this document has been carefully reviewed, there might still be some phonetic and typographical errors. Occasional wrong-word or ``sound-alike substitutions may have occurred due to the inherent limitations of voice recognition software. These areas are purely typographical due to imperfections of the software programs and do not reflect any compromise in the patient's medical care. Please read the chart carefully and recognize, using context, where these substitutions have occurred. Plan discussed with: Patient NYHA Physical activity limitations: NA Date of Service: Oct 24, 2024 Billing Provider: RENETTA HAMM Cardiology Common Codes: [id number] INP/OBS CARE (High) Cardiology Consultation Codes: [id number] CONSULT <45MIN RENETTA HAMM Oct 24, 2024 16:25
--- NOTE | 2024-10-24 18:10 | DVHSR ---
APPROVED REPORT EXAM: Two-dimensional and M-mode echocardiogram with Doppler and color Doppler. Blood Pressure: 109/68 mmHg INDICATION Palpitations RISK FACTORS Height: 69, Weight: 272 DIMENSIONS LVDd4.4 (3.8-5.7cm)LA (2D)4.0 (1.9-4.0cm)Aortic Root3.7 (2.0-3.7cm) LVDs3.0 (2.5-4.0cm)LA (MM) (1.9-4.0cm)Aortic Cusp Exc2.0 (1.5-2.0cm) EF (%) 60.0 (55-70%)Rt. Atrium4.3 (1.9-4.0cm)Asc. Aorta cm IVSd1.5 (0.7-1.1cm)RV (D) (1.8-2.4cm) PWd1.5 (0.7-1.1cm) Mitral Valve MitralMitral Stenosis E/A ratio0.02D MVAcm2 Aortic Valve Aortic ValveAortic Stenosis V10.91m/Reba Mean GR.5mmHg V21.52m/Reba Peak GR.9mmHg LVOT Diameter2.1 (1.8-2.4cm)Doppler AVA2.07cm2 Pulmonic Valve V20.94m/s Conclusion Technically good study. Sinus rhythm. Concentric LVH. Biatrial enlargement. Valves appear to be structurally normal. Left ventricular function is preserved at 60% with normal RV function. Mild TR. No pericardial effusion masses or vegetations.
[2024-10-24 18:54] VITALS: PULSE 55
[2024-10-24 20:00] VITALS: PULSE 57; PULSE 61; RESP 20
[2024-10-24] MEDS: METOPROLOL TARTRATE 25 MG TAB PO ONE (21:45)
[2024-10-24] MEDS: ATORVASTATIN 20 MG TAB PO SCH (21:46)
[2024-10-24] MEDS: ENOXAPARIN SOD 100 MG/1 ML SYRINGE SC SCH (22:35)
[2024-10-25] VITALS (8 sets, daily range): BP systolic 118–151; BP diastolic 82–99; PULSE 57–66; RESP 17–20; TEMP 97.3–98.4; O2SAT 91–99
[2024-10-25 07:59] LABS: Basophils # (auto) 0.1 10 ^3/uL (0-0.2); Basophils % (auto) 1.2 % (0.0-2.0); Eosinophils # (auto) 0.2 10 ^3/uL (0-0.8); Eosinophils % (auto) 3.3 % (0.0-7.0); Hemoglobin 14.1 g/dL (13.5-17.5); Lymphocytes # (auto) 2.8 10 ^3/uL (0.4-5.4); Lymphocytes % (auto) 53.2 % (10.0-50.0); Mean Corpuscular Hemoglobin 27.8 pg (28.0-32.0); Mean Corpuscular Hgb Conc. 32.9 g/dL (32.0-36.0); Mean Corpuscular Volume 84.6 fL (80.0-100.0); Monocytes # (auto) 0.5 10 ^3/uL (0-1.3); Monocytes % (auto) 8.6 % (0.0-12.0); Neutrophils # (auto) 1.8 10 ^3/uL (1.6-8.6); Neutrophils % (auto) 33.7 % (37.0-80.0); Platelet Count (auto) 257 10^3/uL (140-450); Red Blood Cells 5.08 10^6/uL (4.5-5.90); Red Cell Distribution Width 15.3 % (11.8-14.3); White Blood Cell 5.3 10^3/uL (4.4-10.8)
[2024-10-25 08:12] LABS: Anion Gap 8 (5-15); Carbon Dioxide 24 mmol/L (20-31); Sodium 139 mmol/L (136-145)
[2024-10-25 08:13] LABS: Calcium 9.8 mg/dL (8.7-10.4)
[2024-10-25 08:15] LABS: Chloride 107 mmol/L (98-107)
[2024-10-25 08:18] LABS: Blood Urea Nitrogen 10 mg/dL (9-23)
[2024-10-25 08:20] LABS: Glucose 110 mg/dL (74-106)
[2024-10-25] MEDS: cefTRIAXone 1GM/50ML D5W 50 ML IV SCH (08:56)
[2024-10-25] MEDS: ASPirin 81 mg TAB PO SCH (08:57)
[2024-10-25] MEDS: METOPROLOL TARTRATE 25 MG TAB PO SCH (08:57)
[2024-10-25] MEDS ORDERED: DIGOXIN 0.125 MG TAB PO SCH (10:00)
[2024-10-25] MEDS: FLECAINIDE ACETATE 50 MG TAB PO ONE (14:35)
--- NOTE | 2024-10-25 15:25 | DVHPN2 ---
Consult Progress Note Subjective Other Systems: Patient now in normal sinus rhythm Objective vital signs Vital Sign Date Time Temp Pulse Resp B/P (MAP) Pulse Ox O2 Delivery O2 Flow Rate FiO2 10/25/24 13:00 97.8 60 17 124/83 (97) 98 97.8 10/25/24 08:00 Room Air* 0 21 Total Intake and Output 10/24/24 10/24/24 10/25/24 15:00 23:00 07:00 Intake Total 283.31 ml 116.64 ml 820 ml Balance 283.31 ml 116.64 ml 820 ml medications Current Medications Medications Dose Ordered Sig/Viry Route Start Time Stop Time Status Last Admin Dose Admin Ceftriaxone Sodium 50 ml @ 100 mls/hr DAILY@09 IV 10/25/24 09:00 10/25/24 08:56 100 MLS/HR Ibuprofen 800 mg 2XW PO 10/27/24 12:00 Metoprolol Tartrate 25 mg DAILY PO 10/25/24 10:00 10/25/24 08:57 25 MG Aspirin 81 mg DAILY PO 10/25/24 10:00 10/25/24 08:57 81 MG Atorvastatin Calcium 40 mg HS PO 10/24/24 22:00 10/24/24 21:46 40 MG Acetaminophen 650 mg Q6HP PRN PO 10/24/24 14:00 Ondansetron HCl 4 mg Q4HP PRN IV 10/24/24 14:00 Nitroglycerin 0.4 mg Q5MINP PRN SL 10/24/24 14:00 Morphine Sulfate 2 mg Q30M PRN IV 10/24/24 14:00 Enoxaparin Sodium 130 mg Q12HR SC 10/25/24 22:00 Flecainide Acetate 100 mg Q12HR PO 10/25/24 22:00 Examination: GENERAL:Normal, LUNGS:Normal, CVS:Normal, NEURO:Normal laboratory and microbiology Laboratory Tests 10/25/24 07:07 Test 10/25/24 07:07 Range/Units Serum Glucose 110 H 74-106 mg/dL Problem List/Assessment/Plan Problem List/Assessment/Plan Atrial fibrillation with rapid ventricular response, now normal sinus rhythm NSTEMI, type II secondary to above Dyslipidemia, newly diagnosed Prediabetes, newly diagnosed ?Pneumonia Tobacco use Marijuana use Morbid obesity Plan/Recommendation (Dr. Simon): * Transthoracic echocardiogram reveals EF 60% * [id number] VASc score: 0 points * Continue therapeutic Lovenox, transition to NOAC when appropriate * Antiarrhythmic agent, transitioned to oral flecainide * Beta-tommy for rate control; up-titrate as tolerated * Monitor and replete electrolytes as needed, keep potassium greater than 4 and magnesium greater than 2 * Continue lipid-lowering agent * Continue close cardiac surveillance Patient seen and examined at bedside with . We will recommend that upon discharge the patient be initiated on NOAC therapy for at least 30 days and he will need to follow up with a overhauler in the outpatient setting. In the meantime, continue with close cardiac surveillance. Thank you for allowing us to care for this patient. Please call with any questions or concerns. This medical document was created using an electronic medical record system with voice recognition software and computerized dictation system. Although this document has been carefully reviewed, there might still be some phonetic and typographical errors. Occasional wrong-word or ``sound-alike substitutions may have occurred due to the inherent limitations of voice recognition software. These areas are purely typographical due to imperfections of the software programs and do not reflect any compromise in the patient's medical care. Please read the chart carefully and recognize, using context, where these substitutions have occurred. Plan discussed with: Patient Date of Service: Oct 25, 2024 Billing Provider: RENETTA HAMM Common Visit Codes: [id number] INP/OBS CARE(HIGH) RENETTA HAMM Oct 25, 2024 15:25
--- NOTE | 2024-10-25 16:39 | DVHPNRES ---
Progress Note Date Seen: Oct 26, 2024 Resident Creating Document: GINGER LAZAR RESIDENT Has the PT tested + for MRSA If YES, has PT been informed?: No Medical Necessity Reason Pt with a Central, PICC or Fol: No Subjective Review of Systems A 53y old male with PMHx afib who came do to chest pain, SOB and palpitations. The palpitaions waking him up in the middle of the sleep yesterday. The chest pain is dull and midsternal with no precipitants or aggravates, lasts up to 45 min, the SOB was at rest and was the reason that he came to the ED. Objective vital signs Vital Sign Date Time Temp Pulse Resp B/P (MAP) Pulse Ox O2 Delivery O2 Flow Rate FiO2 10/25/24 13:00 97.8 60 17 124/83 (97) 98 97.8 10/25/24 08:00 Room Air* 0 21 Total Intake and Output 10/24/24 10/24/24 10/25/24 15:00 23:00 07:00 Intake Total 283.31 ml 116.64 ml 820 ml Balance 283.31 ml 116.64 ml 820 ml medications Current Medications Medications Dose Ordered Sig/Viry Route Start Time Stop Time Status Last Admin Dose Admin Ceftriaxone Sodium 50 ml @ 100 mls/hr DAILY@09 IV 10/25/24 09:00 10/25/24 08:56 100 MLS/HR Ibuprofen 800 mg 2XW PO 10/27/24 12:00 Metoprolol Tartrate 25 mg DAILY PO 10/25/24 10:00 10/25/24 08:57 25 MG Aspirin 81 mg DAILY PO 10/25/24 10:00 10/25/24 08:57 81 MG Atorvastatin Calcium 40 mg HS PO 10/24/24 22:00 10/24/24 21:46 40 MG Acetaminophen 650 mg Q6HP PRN PO 10/24/24 14:00 Ondansetron HCl 4 mg Q4HP PRN IV 10/24/24 14:00 Nitroglycerin 0.4 mg Q5MINP PRN SL 10/24/24 14:00 Morphine Sulfate 2 mg Q30M PRN IV 10/24/24 14:00 Enoxaparin Sodium 130 mg Q12HR SC 10/25/24 22:00 Flecainide Acetate 100 mg Q12HR PO 10/25/24 22:00 Examination General Appearance: Cooperative. Morbidly obese Pulmonary/Respiratory: Clear, bilateral breaths sounds. Cardiovascular/Chest: Irregular rate and rhythm. Peripheral Pulses: 2+ Radial (R). 2+ Radial (L). 2+ Pedal (R). 2+ Pedal (L) Abdominal Exam: Normal bowel sounds. Ankle Exam: Negative ankle edema Lower extremities: Negative lower extremity edema Neuro/Mental Status: A/OX4, coherent. Thoughts/Psych: Normal thought pattern. Appropriate mood and affect. Good judgment and insight. Appearance: No acute distress. Skin Exam: Normal inspection. Normal color. Warm and dry. laboratory and microbiology Laboratory Tests 10/25/24 07:07 Test 10/25/24 07:07 Range/Units Serum Glucose 110 H 74-106 mg/dL Problem List/Assessment/Plan Problem List/Assessment/Plan Atrial fibrillation with rapid ventricular response resolved NSTEMI, type II secondary to above Dyslipidemia, newly diagnosed Prediabetes, newly diagnosed Possible viral Pneumonia Tobacco use Marijuana use Morbid obesity Patient received amiodarone drip, which was stopped due to bradycardia, later changed to flecainide by cardiology: now in sinus rhythm Enoxaparin therapeutic was started Pending viral panel Atorvastatin 40 mg Case discussed with Dr Maki Time spent on care 23 min Plan discussed with: Patient, Other (rn) My Orders My Orders Orders - GINGER LAZAR Procedure Category Date Status Time Covid19 Antigen [facility] 10/25/24 Logged Rapid Influenza A&B LAB 10/25/24 Logged 11:02 Date of Service: Oct 26, 2024 Billing Provider: ELLIOT MAKI MD Common Visit Codes: [id number] INP/OBS CARE(HIGH) GINGER LAZAR Oct 25, 2024 16:39 ELLIOT MAKI MD Oct 27, 2024 15:57
[2024-10-25 18:12] LABS: COVID19 ANTIGEN SOFIA FIA NEGATIVE (NEGATIVE)
[2024-10-25] MEDS: FLECAINIDE ACETATE 50 MG TAB PO SCH (22:01)
[2024-10-25] MEDS: ENOXAPARIN SOD 150 MG/1 ML SYRINGE SC SCH (22:02)
--- NOTE | 2024-10-25 23:43 | DVHPN2 ---
Consult Progress Note Subjective Other Systems: Patient was seen and evaluated in follow up. No overnight events. Patient now in normal sinus rhythm. Repeat troponin 104. Objective vital signs Vital Sign Date Time Temp Pulse Resp B/P (MAP) Pulse Ox O2 Delivery O2 Flow Rate FiO2 10/25/24 21:00 97.6 61 18 150/87 (108) 97 97.6 10/25/24 08:00 Room Air* 0 21 Total Intake and Output 10/24/24 10/24/24 10/25/24 15:00 23:00 07:00 Intake Total 283.31 ml 116.64 ml 820 ml Balance 283.31 ml 116.64 ml 820 ml medications Current Medications Medications Dose Ordered Sig/Viry Route Start Time Stop Time Status Last Admin Dose Admin Ceftriaxone Sodium 50 ml @ 100 mls/hr DAILY@09 IV 10/25/24 09:00 10/25/24 08:56 100 MLS/HR Ibuprofen 800 mg 2XW PO 10/27/24 12:00 Metoprolol Tartrate 25 mg DAILY PO 10/25/24 10:00 10/25/24 08:57 25 MG Aspirin 81 mg DAILY PO 10/25/24 10:00 10/25/24 08:57 81 MG Atorvastatin Calcium 40 mg HS PO 10/24/24 22:00 10/25/24 22:01 40 MG Acetaminophen 650 mg Q6HP PRN PO 10/24/24 14:00 Ondansetron HCl 4 mg Q4HP PRN IV 10/24/24 14:00 Nitroglycerin 0.4 mg Q5MINP PRN SL 10/24/24 14:00 Morphine Sulfate 2 mg Q30M PRN IV 10/24/24 14:00 Enoxaparin Sodium 130 mg Q12HR SC 10/25/24 22:00 10/25/24 22:02 130 MG Flecainide Acetate 100 mg Q12HR PO 10/25/24 22:00 10/25/24 22:01 100 MG Examination: GENERAL:Normal, HEENT:Normal, LUNGS:Normal, CVS:Normal, ABDOMEN:Normal, MSK:Normal, SKIN:Normal, NEURO:Normal laboratory and microbiology Laboratory Tests 10/25/24 07:07 Test 10/25/24 07:07 Range/Units Serum Glucose 110 H 74-106 mg/dL Problem List/Assessment/Plan Problem List/Assessment/Plan Atrial fibrillation with rapid ventricular response, now normal sinus rhythm. NSTEMI, type II secondary to above. Dyslipidemia, newly diagnosed. Prediabetes, newly diagnosed. ?Pneumonia. Tobacco use. Marijuana use. Morbid obesity. Plan/Recommendation Continued all current supportive medical care. Patient has been seen by Jody Powell NP on my behalf, her and I discussed the plan with the patient. Telemetry reviewed. Transthoracic echocardiogram reveals EF 60%. [id number] VASc score: 0 points. Continue therapeutic Lovenox, transition to NOAC when appropriate. Antiarrhythmic agent, transitioned to oral flecainide. Beta-tommy for rate control; up-titrate as tolerated. Monitor and replete electrolytes as needed, keep potassium greater than 4 and magnesium greater than 2. Continue lipid-lowering agent. Continue close cardiac surveillance. upon discharge the patient be initiated on NOAC therapy for at least 30 days and he will need to follow up with a firer marine in the outpatient setting. Additional plan as per the hospital course. Plan discussed with: Patient Date of Service: Oct 25, 2024 Billing Provider: KAIT LAZCANO MD Cardiology Common Codes: [id number] [facility] KATI LAZCANO MD Oct 25, 2024 22:53
[2024-10-26 00:48] VITALS: BP 103/69; PULSE 72; RESP 26; TEMP 97.8; O2SAT 98
[2024-10-26 05:00] VITALS: BP 112/84; PULSE 68; RESP 20; TEMP 98.4; O2SAT 98
[2024-10-26 08:00] VITALS: PULSE 69; PULSE 70; RESP 17; O2SAT 96
[2024-10-26 09:00] VITALS: BP 114/84; PULSE 70; RESP 17; TEMP 98.4; O2SAT 96
--- NOTE | 2024-10-26 09:26 | ECG ---
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
[2024-10-26] MEDS ORDERED: APIX5TAB PO (09:33)
[2024-10-26] MEDS ORDERED: LEVO750T40 PO (09:33)
[2024-10-26] MEDS ORDERED: FLE50T PO (09:33)
--- NOTE | 2024-10-26 10:05 | DVHDSRES ---
Discharge Summary Date of Admission Resident Creating Document: GINGER LAZAR RESIDENT Oct 24, 2024 at 13:49 Date of Discharge: Oct 26, 2024 Admitting Diagnosis Atrial fibrillation with rapid ventricular response resolved Labs/Diagnostic Data: Laboratory Results Test 10/25/24 17:05 10/25/24 16:11 10/25/24 07:07 10/24/24 13:39 SARS-CoV-2 Antigen (Rapid) Negative (NEGATIVE) White Blood Count 5.3 10^3/uL (4.4-10.8) Red Blood Count 5.08 10^6/uL (4.5-5.90) Hemoglobin 14.1 g/dL (13.5-17.5) Hematocrit 43.0 % (41.0-53.0) Mean Corpuscular Volume 84.6 fL (80.0-100.0) Mean Corpuscular Hemoglobin 27.8 pg (28.0-32.0) Mean Corpuscular Hemoglobin Concent 32.9 g/dL (32.0-36.0) Red Cell Distribution Width 15.3 % (11.8-14.3) Platelet Count 257 10^3/uL (140-450) Mean Platelet Volume 8.2 fL (6.9-10.8) Neutrophils (%) (Auto) 33.7 % (37.0-80.0) Lymphocytes (%) (Auto) 53.2 % (10.0-50.0) Monocytes (%) (Auto) 8.6 % (0.0-12.0) Eosinophils (%) (Auto) 3.3 % (0.0-7.0) Basophils (%) (Auto) 1.2 % (0.0-2.0) Neutrophils # (Auto) 1.8 10 ^3/uL (1.6-8.6) Lymphocytes # (Auto) 2.8 10 ^3/uL (0.4-5.4) Monocytes # (Auto) 0.5 10 ^3/uL (0-1.3) Eosinophils # (Auto) 0.2 10 ^3/uL (0-0.8) Basophils # (Auto) 0.1 10 ^3/uL (0-0.2) Nucleated Red Blood Cells 0.0 % Sodium Level 139 mmol/L (136-145) Potassium Level 4.0 mmol/L (3.5-5.1) Chloride Level 107 mmol/L (98-107) Carbon Dioxide Level 24 mmol/L (20-31) Anion Gap 8 (5-15) Blood Urea Nitrogen 10 mg/dL (9-23) Creatinine 1.11 mg/dL (0.700-1.30) Glomerular Filtration Rate Calc 80 mL/min (>90) BUN/Creatinine Ratio 9.0 (10.0-20.0) Serum Glucose 110 mg/dL (74-106) Calcium Level 9.8 mg/dL (8.7-10.4) Troponin I High Sensitivity 104 ng/L (</=54) Urine Opiates Screen Neg (NEGATIVE) Urine Fentanyl Screen Neg (NEGATIVE) Urine Barbiturates Screen Neg (NEGATIVE) Urine Phencyclidine Screen Neg (NEGATIVE) Urine Amphetamines Screen Neg (NEGATIVE) Urine Benzodiazepines Screen Neg (NEGATIVE) Urine Cocaine Screen Neg (NEGATIVE) Urine Cannabinoids Screen Pos (NEGATIVE) Test 10/24/24 08:21 10/24/24 06:03 Urine Color Light-yellow (Yellow) Urine Clarity Clear (Clear) Urine pH 5.0 (5.0-9.0) Urine Specific [place] 1.013 (1.001-1.035) Urine Protein Negative (Negative) Urine Ketones Negative (Negative) Urine Blood Negative /uL (Negative) Urine Nitrite Negative (Negative) Urine Bilirubin Negative (Negative) Urine Urobilinogen Normal mg/dL (Negative) Urine Leukocyte Esterase Negative /uL (Negative) Urine RBC None seen /hpf (0 - 3) Urine Microscopic WBC < 1 /HPF (0-3) Urine Squamous Epithelial Cells Few /hpf (<5) Urine Bacteria None seen /hpf (None Seen) Urine Glucose Normal mg/dL (Normal) Hemoglobin A1c 6.1 % A1C (<5.7) Magnesium Level 2.2 mg/dL (1.6-2.6) Total Bilirubin 0.2 mg/dL (0.2-1.0) Aspartate Amino Transferase (AST) 24 U/L (13-40) Alanine Aminotransferase (ALT) 34 U/L (7-40) Alkaline Phosphatase 106 U/L (46-116) B-Type Natriuretic Peptide 9.28 pg/mL (0-100) Total Protein 7.5 g/dL (5.7-8.2) Albumin 4.5 g/dL (3.2-4.8) Triglycerides Level 216 mg/dL (< 150) Cholesterol Level 166 mg/dL (< 200) LDL Cholesterol 118 mg/dL (< 100) HDL Cholesterol 35 mg/dL (40-59) Thyroid Stimulating Hormone (TSH) 1.74 uIU/mL (0.55-4.78) Other Laboratory Tests 10/25/24 07:07 Brief Hx & Hospital Course: A 53-year-old male with a history of atrial fibrillation and morbid obesity presented with chest pain, palpitations, and shortness of breath at rest. His symptoms began the night prior, with the chest pain described as dull, midsternal, and lasting up to 45 minutes. Evaluation revealed atrial fibrillation with rapid ventricular response (RVR), which resolved with treatment. He was also noted to have newly diagnosed dyslipidemia, prediabetes, and a possible NSTEMI, type II secondary to demand ischemia. During hospitalization, the patient was managed with an amiodarone drip for RVR, later transitioned to flecainide due to bradycardia, and he achieved sinus rhythm. Therapeutic anticoagulation with enoxaparin was initiated and transitioned to eliquis as outpatient , and atorvastatin was added to his regimen. He demonstrated clinical improvement and was discharged with follow-up instructions for cardiology and primary care. A possible pneumonia was considered, and viral panels were sent. (Covid neg, pending influenza). Results can be f/u in DC clinic. Patient is discharged with oral AB He was counseled on lifestyle modifications, smoking cessation, and adherence to his new medication regimen. General Appearance: Cooperative. Morbidly obese Pulmonary/Respiratory: Clear, bilateral breaths sounds. Cardiovascular/Chest: Irregular rate and rhythm. Peripheral Pulses: 2+ Radial (R). 2+ Radial (L). 2+ Pedal (R). 2+ Pedal (L) Abdominal Exam: Normal bowel sounds. Ankle Exam: Negative ankle edema Lower extremities: Negative lower extremity edema Neuro/Mental Status: A/OX4, coherent. Thoughts/Psych: Normal thought pattern. Appropriate mood and affect. Good judgment and insight. Appearance: No acute distress. Skin Exam: Normal inspection. Normal color. Warm and dry. Case discussed with Dr Maki Time spent on care 23 min Consults/Reason for consult cardiology due to afib Operations or Procedures EXAM: Two-dimensional and M-mode echocardiogram with Doppler and color Doppler. Blood Pressure: 109/68 mmHg INDICATION Palpitations RISK FACTORS Height: 69, Weight: 272 DIMENSIONS LVDd 4.4 (3.8-5.7cm) LA (2D) 4.0 (1.9-4.0cm) Aortic Root 3.7 (2.0- 3.7cm) LVDs 3.0 (2.5-4.0cm) LA (MM) (1.9-4.0cm) Aortic Cusp Exc 2.0 (1.5- 2.0cm) EF (%) 60.0 (55-70%) Rt. Atrium 4.3 (1.9-4.0cm) Asc. Aorta cm IVSd 1.5 (0.7-1.1cm) RV (D) (1.8-2.4cm) PWd 1.5 (0.7-1.1cm) Mitral Valve Mitral Mitral Stenosis E/A ratio 0.0 2D MVA cm2 Aortic Valve Aortic Valve Aortic Stenosis V1 0.91m/s AO Mean GR. 5mmHg V2 1.52m/s AO Peak GR. 9mmHg LVOT Diameter 2.1 (1.8-2.4cm) Doppler JENNIFER 2.07cm2 Pulmonic Valve V2 0.94m/s Conclusion Technically good study. Sinus rhythm. Concentric LVH. Biatrial enlargement. Valves appear to be structurally normal. Left ventricular function is preserved at 60% with normal RV function. Mild TR. No pericardial effusion masses or vegetations. Condition at Discharge: Stable Final Diagnosis/Problems List Atrial fibrillation with rapid ventricular response resolved NSTEMI, type II secondary to above Dyslipidemia, newly diagnosed Prediabetes, newly diagnosed Possible Pneumonia gram +/ gram neg Tobacco use Marijuana use Morbid obesity Discharge Disposition: Home Discharge Instruct/Medications Diet: Consistent carbohydrate, Cardiac 2g Na,low cholest Activity: Light activity Follow Up/Referral: dc clinic and cardiology dc clinic: Dr Eros Stark monday AM Medications: see prescription Discharge Statement: "Patient was advised to return to the ER or call 911 if any headaches, dizziness, shortness of breath, chest pain, abdominal pain, bleeding, fevers, or worsening of medical condition. Patient was counseled about treatment plan, medications, possible side effects, patientverbalized understanding. All questions were answered to the best of my ability. This discharge took greater then 30 minutes in planning, reviewing documentation, counseling the patient, and discussing with other team members." ASSESSMENT ASSESSMENT Assessment atrial fibrilation Date of Service: Oct 26, 2024 Billing Provider: ELLIOT MAKI MD Common Visit Codes: 65180-DNW/OBS DISCH DAY >30min GINGER LAZAR RESIDENT Oct 26, 2024 10:05 ELLIOT MAKI MD Oct 27, 2024 15:58
[2024-10-26] MEDS ORDERED: ATOR40TA52 PO (15:35)
--- NOTE | 2024-10-26 18:28 | DVHPN2 ---
Progress Note - Dictate Date Seen: Oct 26, 2024 Has the PT tested + for MRSA If YES, has PT been informed?: No Medical Necessity Reason Pt with a Central, PICC or Fol: No Subjective Patient was seen and evaluated in follow-up. Patient has no new complaints at this time. Patient denies any cardiac symptoms. Patient is cardiac stable for discharge. Telemetry reviewed. vital signs Vital Sign Date Time Temp Pulse Resp B/P (MAP) Pulse Ox O2 Delivery O2 Flow Rate FiO2 10/26/24 10:37 65 127/86 10/26/24 09:00 98.4 17 96 98.4 10/26/24 08:00 Room Air* 0 21 Total Intake and Output 10/25/24 10/25/24 10/26/24 15:00 23:00 07:00 Intake Total 50 ml 400 ml 600 ml Output Total 1 ml Balance 50 ml 400 ml 599 ml objective GENERAL: Awake, alert, oriented. LUNGS: Clear. CARDIOVASCULAR: Heart sounds are good. ABDOMEN: Soft. laboratory and microbiology Laboratory Tests 10/25/24 07:07 Test 10/25/24 07:07 Range/Units Serum Glucose 110 H 74-106 mg/dL Problem List Atrial fibrillation with rapid ventricular response, now normal sinus rhythm. NSTEMI, type II secondary to above. Dyslipidemia, newly diagnosed. Prediabetes, newly diagnosed. ?Pneumonia. Tobacco use. Marijuana use. Morbid obesity. Plan/Recommendation Continued all current supportive medical care. Patient has been seen by Jody Powell NP on my behalf, her and I discussed the plan with the patient. Telemetry reviewed. Transthoracic echocardiogram reveals EF 60%. [id number] VASc score: 0 points. Continue therapeutic Lovenox, transition to NOAC when appropriate. Antiarrhythmic agent, transitioned to oral flecainide. Beta-tommy for rate control; up-titrate as tolerated. Monitor and replete electrolytes as needed, keep potassium greater than 4 and magnesium greater than 2. Continue lipid-lowering agent. Continue close cardiac surveillance. upon discharge the patient be initiated on NOAC therapy for at least 30 days and he will need to follow up with a wine merchant in the outpatient setting. Additional plan as per the hospital course. Assessment/Plan Continued all current supportive medical care. Lipitor, Aspirin, Metoprolol. DVT prophylactics. IV antibiotics as ordered. Upon discharge the patient be initiated on NOAC therapy for at least 30 days and he will need to follow up with a wine merchant in the outpatient setting. Additional plan as per the hospital course. Plan discussed with: Patient KATI LAZCANO MD Oct 26, 2024 16:45
[2024-10-27] MEDS ORDERED: IBUPROFEN 800 MG TAB PO SCH (12:00)
== END 2024-10-26 12:33 | disposition home or self-care (01) | DRG 280 ==
LOC: ER 05:42 → TELE 13:49 → TELE-EAST 18:44
PROVIDERS: ADMIT Student in an Organized Health Care Education/Training Program; ATTEND Emergency Medicine
DX: I48.0 Paroxysmal atrial fibrillation (principal); J15.69 Pneumonia due to other Gram-negative bacteria; I21.A1 Myocardial infarction type 2; J15.9 Unspecified bacterial pneumonia; Z68.41 Body mass index [BMI] 40.0-44.9, adult; E66.01 Morbid (severe) obesity due to excess calories; E78.5 Hyperlipidemia, unspecified; R73.03 Prediabetes; F17.210 Nicotine dependence, cigarettes, uncomplicated; Z20.822 Contact with and (suspected) exposure to COVID-19; F17.290 Nicotine dependence, other tobacco product, uncomplicated; F12.10 Cannabis abuse, uncomplicated; Z79.899 Other long term (current) drug therapy; Z79.1 Long term (current) use of non-steroidal anti-inflammatories (NSAID); Z86.73 Personal history of transient ischemic attack (TIA), and cerebral infarction without residual deficits; Z83.3 Family history of diabetes mellitus; Z91.128 Patient's intentional underdosing of medication regimen for other reason
CPT/HCPCS: 36415; 71045; 80048; 80053; 80061; 80307; 81001; 83036; 83735; 83880; 84443; 84484; 85025; 87426; 93005; 93306; 96365; 99291; 99292; G0378